=== PATIENT | female | born 1995 | race African-American/Black ===

== ENCOUNTER 2017-12-11 18:44 | Emergency (ER) | payer SELFPAY ==
[2017-12-11 19:36] VITALS: BP 123/76
--- NOTE | 2017-12-11 21:05 | ER Document Report ---
HPI - HPI Patient complains to provider of: Headaches Pain Level: 4 Context: Patient is a 22-year-old female that comes to the emergency department for chief complaint of headaches, she states that for the past several weeks she is getting daily headaches, she admits to pain in her neck mainly on the left side with some stiffness, throbbing headaches intermittently mainly behind her eye on the left side, but no nausea. She denies vomiting, injury, fevers, focal numbness or weakness. She takes no daily medications. LMP within the past month. She states her dad gets cluster headaches but his headaches seem different than hers. She has never had any brain imaging or evaluation for headaches in the past. Past Medical History - General Information source: Patient - Social History Smoking Status: Never Smoker Frequency of alcohol use: None Drug Abuse: None Lives with: Family Family History: Reviewed & Not Pertinent - Medical History Medical History: Negative Surgical Hx: Negative - Immunizations Immunizations up to date: Yes Hx Diphtheria, Pertussis, Tetanus Vaccination: Yes Vertical Provider Document - CONSTITUTIONAL General Appearance: WD/WN, No Apparent Distress - INFECTION CONTROL TRAVEL OUTSIDE OF THE [place] IN LAST 30 DAYS: No - HEENT HEENT: Atraumatic, Normal ENT Exam, Normocephalic - NECK Neck: Normal Inspection - RESPIRATORY Respiratory: Breath Sounds Normal, No Respiratory Distress - CARDIOVASCULAR Cardiovascular: Regular Rate, Regular Rhythm - GI/ABDOMEN Gastrointestinal: Abdomen Soft, Abdomen Non-Tender - BACK Back: Normal Inspection - Tenderness over the left paracervical muscles extending to the left trapezius muscles. Range of motion unremarkable and normal except for pain with turning the head to the far right. No midline tenderness, no saddle anesthesia, no signs of trauma. Normal upper and lower extremity range of motion, normal strength, normal distal neurovascular exam. - MUSCULOSKELETAL/EXTREMETIES Musculoskeletal/Extremeties: MAEW, FROM, Non-Tender - NEURO Level of Consciousness: Awake, Alert, Appropriate - DERM Integumentary: Warm, Dry, No Rash Course - Re-evaluation Re-evalutation: Patient well-appearing, no neurological deficits, no current complaints including no current headache. She has paracervical tenderness and description suggesting tension headache with triggered migraines. Low suspicion of any emergent etiology especially with no current symptoms. Discussed options, recommendations, treatment at home, primary care follow-up, and return precautions. Patient states understanding and agreement. - Vital Signs Vital signs: Temp Pulse Resp BP Pulse Ox 98.0 F 81 16 123/76 100 12/11/17 19:35 12/11/17 19:35 12/11/17 19:35 12/11/17 19:35 12/11/17 19:35 Discharge - Discharge Clinical Impression: Headache Qualifiers: Headache type: unspecified Headache chronicity pattern: acute headache Intractability: not intractable Qualified Code(s): R51 - Headache Condition: Stable Disposition: HOME, SELF-CARE Additional Instructions: Your evaluation and headache are consistent with a tension headache triggering a migraine. Take muscle relaxer as prescribed, apply heat over the area, do gentle stretches or massage for the muscle, continue ibuprofen. If needed take the Fioricet prescribed for tension headaches. Follow-up with primary care for additional evaluation and management. Return for any concerning symptoms including vomiting, severe headache, fever, etc. Prescriptions: Butalb/Acetaminophen/Caffeine [Fioricet (50-325-40 mg) Tablet] 1 tab PO Q4HP PRN #30 tab PRN Reason: Methocarbamol [Robaxin 750 mg Tablet] 750 mg PO Q6 #20 tablet Forms: Return to Work
== END 2017-12-11 21:21 | disposition home or self-care (01) ==
LOC: ER 18:44
DX: R51 Headache (principal); M54.2 Cervicalgia
CPT/HCPCS: 99283

== ENCOUNTER 2020-01-10 15:51 | Emergency (ER) | payer SELFPAY ==
[2020-01-10 15:59] VITALS: BP 125/85
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
== END 2020-01-10 17:08 | disposition home or self-care (01) ==
LOC: ER 15:51
DX: S20.02XA Contusion of left breast, initial encounter (principal); N63.24 Unspecified lump in the left breast, lower inner quadrant; Y08.89XA Assault by other specified means, initial encounter; F17.200 Nicotine dependence, unspecified, uncomplicated
CPT/HCPCS: 76642; 99284